=== PATIENT | male | born 1980 | race Caucasian/White ===

== ENCOUNTER 2016-07-19 12:04 | Emergency (ER) | payer MEDICAID ==
[~2016-07-19] VITALS: Ht 177.8 cm; Wt 81.6 kg
[~2016-07-19 12:04] MED LIST: CARI350T21; HYDR-2616
[2016-07-19 13:07] VITALS: BP 106/59
== END 2016-07-19 13:46 | disposition home or self-care (01) ==
LOC: ER 12:04
DX: J02.9 Acute pharyngitis, unspecified (principal); R51 Headache; H66.91 Otitis media, unspecified, right ear; J45.909 Unspecified asthma, uncomplicated

== ENCOUNTER 2018-03-17 19:27 | Emergency (ER) | payer MEDICAID ==
[~2018-03-17] VITALS: Ht 175.3 cm; Wt 102.5 kg
[~2018-03-17 19:27] MED LIST changes: -CARI350T21; +CARI350T22
[2018-03-17 21:01] LABS: Basophils # (auto) 0 uL; Basophils % (auto) 0.9 % (0.0-2.0); Eosinophils # (auto) 0.1 uL; Eosinophils % (auto) 2.1 % (0.0-7.0); Hematocrit 44.3 % (41.0-53.0); Hemoglobin 15.3 g/dL (13.5-17.5); Lymphocytes # (auto) 1.8 uL; Lymphocytes % (auto) 34.1 % (10.0-50.0); Mean Corpuscular Hemoglobin 30.3 pg (28.0-32.0); Mean Corpuscular Hgb Conc. 34.5 g/dL (32.0-36.0); Mean Corpuscular Volume 87.8 fL (80.0-100.0); Monocytes # (auto) 0.4 uL; Monocytes % (auto) 7.5 % (0.0-12.0); Neutrophils % (auto) 55.4 % (37.0-80.0); Nucleated Red Blood Cells % 0.1 %; Platelet Count (auto) 216 10^3/uL (140-450); Red Blood Cells 5.05 10^6/uL (4.5-5.90); White Blood Cell 5.4 10^3/uL (4.4-10.8)
[2018-03-17 21:24] LABS: Albumin 3.9 g/dL (3.4-5.0); BUN/Creatinine Ratio 11.4; Bilirubin, Total 0.4 mg/dL (0.2-1.0); Calcium 8.9 mg/dL (8.5-10.1); Potassium 3.9 mmol/L (3.5-5.1); Total Protein 7.7 g/dL (6.4-8.2)
[2018-03-17 21:43] LABS: Urine Bacteria NONE SEEN /hpf (None Seen); Urine Blood Negative /uL (Negative); Urine Mucus FEW (None Seen); Urine Specific Gravity 1.036 (1.001-1.035); Urine WBC 1 /hpf (0 - 3)
[2018-03-18 00:38] VITALS: BP 145/105
[2018-03-18] MEDS ORDERED: metroNIDAZOLE 500 MG TAB PO ONE (02:00)
== END 2018-03-18 04:36 | disposition home or self-care (01) ==
LOC: ER 19:27
DX: K57.90 Diverticulosis of intestine, part unspecified, without perforation or abscess without bleeding (principal); J45.909 Unspecified asthma, uncomplicated; E11.9 Type 2 diabetes mellitus without complications; I10 Essential (primary) hypertension
CPT/HCPCS: 36415; 74176; 80053; 81001; 85025